=== PATIENT | male | born 1935 | race Caucasian/White ===

== ENCOUNTER 2021-04-24 14:17 | Outpatient (CLI) | payer MEDICARE | END 2021-04-24 23:59 | disposition home or self-care (01) | LOC: CVU 14:17 | PROVIDERS: ATTEND Specialist | DX: I08.8 Other rheumatic multiple valve diseases (principal); I65.22 Occlusion and stenosis of left carotid artery; I67.89 Other cerebrovascular disease; I11.9 Hypertensive heart disease without heart failure; I77.1 Stricture of artery | CPT/HCPCS: 93306; 93356; 93880 ==